=== PATIENT | male | born 1935 | race Caucasian/White ===

== ENCOUNTER 2019-09-23 06:26 | Inpatient (IN) ==
[2019-09-23] MEDS ORDERED: Naloxone 0.4 MG/ML INJ IVP PRN (08:06)
[2019-09-23] MEDS ORDERED: Ondansetron 4 MG/2 ML VIAL IVP PRN (08:06)
[2019-09-23] MEDS ORDERED: *HR* Dextrose 50 % in Water (Syg) 50 ML SYRINGE IVP PRN (08:34)
[2019-09-23] MEDS ORDERED: D5% in Water 1,000 ML IVC PRN (08:34)
[2019-09-23] MEDS ORDERED: Dextrose Gel 15 GM/37.5 ML TUBE PO PRN ×2 (08:34)
[2019-09-23 09:05] LABS: Basophils % 0.3 %; Hematocrit 36.1 % (37.5-50.1); Hemoglobin 12.4 g/dL (12.9-16.9); Immature Granulocytes % 0.5 % (0-4); Lymphocytes # 0.8 K/mcL (0.6-4.6); Lymphocytes % 6.1 %; Mean Corpuscular HGB Conc 34.3 g/dL (31.6-35.5); Mean Corpuscular Hemoglobin 32.8 pg (28.0-33.3); Mean Corpuscular Volume 95.5 fL (83.0-100.0); Mean Platelet Volume 12.1 fL (9.4-12.4); Monocytes # 0.9 K/mcL (0.0-1.3); Neutrophils # 11.5 K/mcL (1.6-8.9); Platelet Count 164 K/mcL (140-400); Red Blood Count 3.78 M/mcL (4.19-5.50); Red Cell Distribution Width 13.5 % (11.5-14.5); Segmented Neutrophils % 86.1 %; White Blood Count 13.4 K/mcL (4.3-11.1)
[2019-09-23] MEDS ORDERED: Acetaminophen 325 MG TABLET PO PRN (09:05)
[2019-09-23 09:15] LABS: BUN/Creatinine Ratio 24 (6-26); Blood Urea Nitrogen 22 mg/dL (8-23); Calcium 8.8 mg/dL (8.6-10.3); Carbon Dioxide 21 mEq/L (23-29); Chloride 105 mEq/L (98-107); Glucose 279 mg/dL (70-105); Osmolality,Calculated 301 (280-300); Potassium 4.8 mEq/L (3.5-5.1); Sodium 139 mEq/L (136-145); eGFR For African Americans > 60 (> 60); eGFR For Non-African Americans > 60 (> 60)
[2019-09-23] MEDS: *HR* HYDROcodone/Acet 5/325 mg TABLET PO PRN ×2 (12:11→18:15)
[2019-09-23] MEDS: Sulfamethoxazole/Trimeth 10 ML in D5% in Water 500 ML IVPB SCH ×2 (12:11→21:24)
[2019-09-23] MEDS: Insulin LISPRO 300 UNITS/3 ML VIAL SQ SCH ×3 (12:14→20:06)
[2019-09-23] MEDS: 0.9 % Sodium Chloride 1,000 ML IVC SCH (15:17)
[2019-09-23 17:24] LABS: Hematocrit 30.3 % (37.5-50.1); Hemoglobin 10.2 g/dL (12.9-16.9)
[2019-09-23] MEDS ORDERED: Insulin DETEMIR 100 UNIT/ML X5UNITS SQ SCH (21:00)
[2019-09-24] MEDS: *HR* HYDROcodone/Acet 5/325 mg TABLET PO PRN ×4 (00:01→20:05)
[2019-09-24 00:03] LABS: Hematocrit 32.1 % (37.5-50.1); Hemoglobin 11.1 g/dL (12.9-16.9)
[2019-09-24] MEDS ORDERED: Lidocaine Jelly 11 ml Syringe MM ONE (01:33)
[2019-09-24 04:40] LABS: Basophils % 0.4 %; Eosinophils % 0.3 %; Hematocrit 28.4 % (37.5-50.1); Hemoglobin 9.6 g/dL (12.9-16.9); Immature Granulocytes % 0.5 % (0-4); Lymphocytes # 1.4 K/mcL (0.6-4.6); Lymphocytes % 14.7 %; Mean Corpuscular HGB Conc 33.8 g/dL (31.6-35.5); Mean Corpuscular Hemoglobin 33.2 pg (28.0-33.3); Mean Corpuscular Volume 98.3 fL (83.0-100.0); Mean Platelet Volume 11.6 fL (9.4-12.4); Monocytes % 9.9 %; Neutrophils # 7.2 K/mcL (1.6-8.9); Platelet Count 113 K/mcL (140-400); Red Blood Count 2.89 M/mcL (4.19-5.50); Red Cell Distribution Width 13.5 % (11.5-14.5); Segmented Neutrophils % 74.2 %; White Blood Count 9.8 K/mcL (4.3-11.1)
[2019-09-24 05:01] LABS: BUN/Creatinine Ratio 24 (6-26); Blood Urea Nitrogen 19 mg/dL (8-23); Calcium 8.3 mg/dL (8.6-10.3); Carbon Dioxide 25 mEq/L (23-29); Chloride 104 mEq/L (98-107); Glucose 205 mg/dL (70-105); Magnesium 1.5 mg/dL (1.6-2.6); Osmolality,Calculated 292 (280-300); Sodium 137 mEq/L (136-145); eGFR For African Americans > 60 (> 60); eGFR For Non-African Americans > 60 (> 60)
[2019-09-24] MEDS: 0.9 % Sodium Chloride 1,000 ML IVC SCH (06:26)
[2019-09-24] MEDS: Metoprolol XL (24 HR) Succ 25 MG TAB.ER.24H PO SCH (09:53)
[2019-09-24] MEDS: Sulfamethoxazole/Trimeth 10 ML in D5% in Water 500 ML IVPB SCH ×2 (09:53→19:49)
[2019-09-24] MEDS: Ranolazine 500 MG TAB.ER.12H PO SCH ×2 (09:53→19:48)
[2019-09-24] MEDS: Insulin LISPRO 300 UNITS/3 ML VIAL SQ SCH ×4 (10:03→20:53)
[2019-09-24] MEDS: Hyoscyamine SL 0.125 MG TAB.SUBL SL SCH ×3 (13:54→19:48)
[2019-09-24 14:57] LABS: Hematocrit 28.4 % (37.5-50.1); Hemoglobin 9.8 g/dL (12.9-16.9)
[2019-09-24 17:37] LABS: Estimated Average Glucose 169 mg/dl
[2019-09-24] MEDS ORDERED: Insulin DETEMIR 100 UNIT/ML X5UNITS SQ SCH ×2 (21:00)
[2019-09-25] MEDS: *HR* HYDROcodone/Acet 5/325 mg TABLET PO PRN (03:17)
[2019-09-25 03:20] LABS: Hematocrit 26.9 % (37.5-50.1); Hemoglobin 9.3 g/dL (12.9-16.9); Mean Corpuscular HGB Conc 34.6 g/dL (31.6-35.5); Mean Corpuscular Hemoglobin 33.1 pg (28.0-33.3); Mean Corpuscular Volume 95.7 fL (83.0-100.0); Mean Platelet Volume 12.2 fL (9.4-12.4); Platelet Count 103 K/mcL (140-400); Red Blood Count 2.81 M/mcL (4.19-5.50); Red Cell Distribution Width 13.6 % (11.5-14.5); White Blood Count 7.3 K/mcL (4.3-11.1)
[2019-09-25 03:39] LABS: BUN/Creatinine Ratio 18 (6-26); Blood Urea Nitrogen 15 mg/dL (8-23); Calcium 7.9 mg/dL (8.6-10.3); Carbon Dioxide 26 mEq/L (23-29); Chloride 104 mEq/L (98-107); Glucose 223 mg/dL (70-105); Magnesium 1.5 mg/dL (1.6-2.6); Osmolality,Calculated 292 (280-300); Potassium 4.1 mEq/L (3.5-5.1); Sodium 137 mEq/L (136-145); eGFR For African Americans > 60 (> 60); eGFR For Non-African Americans > 60 (> 60)
[2019-09-25] MEDS: Metoprolol XL (24 HR) Succ 25 MG TAB.ER.24H PO SCH (08:25)
[2019-09-25] MEDS: Ranolazine 500 MG TAB.ER.12H PO SCH (08:25)
[2019-09-25] MEDS: Hyoscyamine SL 0.125 MG TAB.SUBL SL SCH (08:25)
[2019-09-25] MEDS: Insulin LISPRO 300 UNITS/3 ML VIAL SQ SCH ×2 (08:26→14:20)
[2019-09-25] MEDS: Sulfamethoxazole/Trimeth 10 ML in D5% in Water 500 ML IVPB SCH (14:21)
[2019-09-25 14:55] VITALS: BP 131/73
[2019-09-25] MEDS ORDERED: Sulfamethoxazole/Trimeth DS 1 EACH TABLET PO SCH (21:00)
== END 2019-09-25 15:31 | disposition home or self-care (01) | DRG 872 ==
LOC: 3BNU
PROVIDERS: ADMIT Internal Medicine; ATTEND Internal Medicine

== ENCOUNTER 2019-09-26 12:12 | Inpatient (IN) ==
[2019-09-26] MEDS ORDERED: *HR* FentaNYL (PF) 100 MCG/2 ML VIAL IVP ONE (13:10)
[2019-09-26 13:11] LABS: Basophils % 0.3 %; Eosinophils # 0.1 K/mcL (0.0-0.6); Eosinophils % 0.9 %; Hematocrit 28.5 % (37.5-50.1); Hemoglobin 9.7 g/dL (12.9-16.9); Immature Granulocytes % 0.5 % (0-4); Lymphocytes # 1.2 K/mcL (0.6-4.6); Lymphocytes % 15.7 %; Mean Corpuscular Hemoglobin 33.3 pg (28.0-33.3); Mean Corpuscular Volume 97.9 fL (83.0-100.0); Mean Platelet Volume 11.5 fL (9.4-12.4); Monocytes # 0.8 K/mcL (0.0-1.3); Monocytes % 10.7 %; Neutrophils # 5.4 K/mcL (1.6-8.9); Platelet Count 133 K/mcL (140-400); Red Blood Count 2.91 M/mcL (4.19-5.50); Red Cell Distribution Width 13.6 % (11.5-14.5); Segmented Neutrophils % 71.9 %; White Blood Count 7.5 K/mcL (4.3-11.1)
[2019-09-26 13:15] LABS: BUN/Creatinine Ratio 18 (6-26); Blood Urea Nitrogen 13 mg/dL (8-23); Calcium 8.9 mg/dL (8.6-10.3); Carbon Dioxide 25 mEq/L (23-29); Chloride 105 mEq/L (98-107); Glucose 185 mg/dL (70-105); Osmolality,Calculated 293 (280-300); Sodium 139 mEq/L (136-145); eGFR For African Americans > 60 (> 60); eGFR For Non-African Americans > 60 (> 60)
[2019-09-26] MEDS ORDERED: 0.9 % Sodium Chloride 1,000 ML IVC ONE (14:00)
[2019-09-26 14:29] LABS: Bilirubin,Urine Negative (Negative); Blood,Urine Large (Negative); Clarity,Urine Cloudy (Clear); Color,Urine Yellow (Yellow); Glucose,Urine (UA) Normal (Normal); Ketones,Urine Trace mg/dL (Negative); Leukocyte Esterase,Urine Moderate (Negative); Nitrite,Urine Negative (Negative); Protein,Urine 100 mg/dL (Neg-Trace); Specific Gravity,Urine 1.019 (1.010-1.025); Urobilinogen,Urine Normal (Normal)
[2019-09-26 14:34] LABS: Hyaline Casts,Urine None Seen per lpf (None-Few); Squamous Epithelial Cell,Urine Many per lpf (None-Few)
[2019-09-26 14:53] LABS: Bacteria,Urine Few per hpf (None-Few); RBC,Urine 50-100 per hpf (0-3)
[2019-09-26] MEDS ORDERED: 0.9 % Sodium Chloride 1,000 ML ONE (15:09)
[2019-09-26] MEDS ORDERED: Acetaminophen 325 MG TABLET PO PRN (15:16)
[2019-09-26] MEDS ORDERED: *HR* HYDROcodone/Acet 5/325 mg TABLET PO PRN (15:16)
[2019-09-26] MEDS ORDERED: Naloxone 0.4 MG/ML INJ IVP PRN (15:16)
[2019-09-26] MEDS ORDERED: *HR* OxyCODONE Immed Rel 5 MG TABLET PO PRN (15:16)
[2019-09-26] MEDS ORDERED: Dextrose Gel 15 GM/37.5 ML TUBE PO PRN ×2 (15:59)
[2019-09-26] MEDS ORDERED: *HR* Dextrose 50 % in Water (Syg) 50 ML SYRINGE IVP PRN (15:59)
[2019-09-26] MEDS ORDERED: D5% in Water 1,000 ML IVC PRN (15:59)
[2019-09-26] MEDS: Ringers Solution, Lactated 1,000 ML IVC SCH (18:09)
[2019-09-26] MEDS: Metoprolol XL (24 HR) Succ 25 MG TAB.ER.24H PO SCH (18:09)
[2019-09-26] MEDS: Insulin LISPRO 300 UNITS/3 ML VIAL SQ SCH (18:10)
[2019-09-26] MEDS ORDERED: Insulin LISPRO 300 UNITS/3 ML VIAL SQ SCH (21:00)
[2019-09-26] MEDS: Hyoscyamine SL 0.125 MG TAB.SUBL SL SCH (21:58)
[2019-09-26] MEDS: Ranolazine 500 MG TAB.ER.12H PO SCH (21:58)
[2019-09-26] MEDS: Sulfamethoxazole/Trimeth DS 1 EACH TABLET PO SCH (21:58)
[2019-09-27 04:56] LABS: Basophils % 0.4 %; Eosinophils # 0.1 K/mcL (0.0-0.6); Eosinophils % 2.7 %; Hematocrit 25.3 % (37.5-50.1); Hemoglobin 8.3 g/dL (12.9-16.9); Immature Granulocytes % 0.4 % (0-4); Lymphocytes # 1.3 K/mcL (0.6-4.6); Mean Corpuscular HGB Conc 32.8 g/dL (31.6-35.5); Mean Corpuscular Hemoglobin 32.7 pg (28.0-33.3); Mean Corpuscular Volume 99.6 fL (83.0-100.0); Mean Platelet Volume 11.8 fL (9.4-12.4); Monocytes # 0.7 K/mcL (0.0-1.3); Monocytes % 12.7 %; Platelet Count 116 K/mcL (140-400); Red Blood Count 2.54 M/mcL (4.19-5.50); Red Cell Distribution Width 14.2 % (11.5-14.5); Segmented Neutrophils % 58.8 %; White Blood Count 5.1 K/mcL (4.3-11.1)
[2019-09-27 05:41] LABS: Blood Urea Nitrogen 12 mg/dL (8-23); Calcium 8.1 mg/dL (8.6-10.3); Chloride 108 mEq/L (98-107); Glucose 141 mg/dL (70-105); Osmolality,Calculated 294 (280-300); Potassium 4.2 mEq/L (3.5-5.1); Sodium 141 mEq/L (136-145)
[2019-09-27 06:31] LABS: INR 1.1; Prothrombin Time 12.8 Seconds (9.4-12.1)
[2019-09-27 06:41] LABS: BUN/Creatinine Ratio 17 (6-26); Carbon Dioxide 27 mEq/L (23-29); eGFR For African Americans > 60 (> 60); eGFR For Non-African Americans > 60 (> 60)
[2019-09-27] MEDS: Insulin LISPRO 300 UNITS/3 ML VIAL SQ SCH ×3 (07:52→16:12)
[2019-09-27] MEDS ORDERED: Clindamycin 900 MG/50 ML 900 MG/50 ML IV.SOLN IVPB ONE (08:17)
[2019-09-27] MEDS ORDERED: Naloxone 0.4 MG/ML INJ IVP PRN (09:46)
[2019-09-27] MEDS ORDERED: D5% in Water 1,000 ML IVC PRN (09:46)
[2019-09-27] MEDS ORDERED: Ringers Solution, Lactated 1,000 ML IVC SCH (09:46)
[2019-09-27] MEDS ORDERED: *HR* OxyCODONE Immed Rel 5 MG TABLET PO PRN (09:46)
[2019-09-27] MEDS ORDERED: Dextrose Gel 15 GM/37.5 ML TUBE PO PRN ×2 (09:46)
[2019-09-27] MEDS ORDERED: Acetaminophen 325 MG TABLET PO PRN (09:46)
[2019-09-27] MEDS ORDERED: *HR* Dextrose 50 % in Water (Syg) 50 ML SYRINGE IVP PRN (09:46)
[2019-09-27] MEDS ORDERED: *HR* HYDROcodone/Acet 5/325 mg TABLET PO PRN (09:46)
[2019-09-27 12:18] LABS: Hematocrit 29.3 % (37.5-50.1)
[2019-09-27 12:19] LABS: Hemoglobin 9.9 g/dL (12.9-16.9)
[2019-09-27] MEDS: Hyoscyamine SL 0.125 MG TAB.SUBL SL SCH ×3 (14:42→20:41)
[2019-09-27] MEDS: Metoprolol XL (24 HR) Succ 25 MG TAB.ER.24H PO SCH (20:29)
[2019-09-27] MEDS: Ranolazine 500 MG TAB.ER.12H PO SCH ×2 (20:29→20:41)
[2019-09-27] MEDS: Sulfamethoxazole/Trimeth DS 1 EACH TABLET PO SCH ×2 (20:30→20:42)
[2019-09-27] MEDS: Ringers Solution, Lactated 1,000 ML IVC SCH (20:30)
[2019-09-27] MEDS ORDERED: IPRATROPIUM BROMIDE NS SCH (21:00)
[2019-09-27] MEDS ORDERED: Insulin LISPRO 300 UNITS/3 ML VIAL SQ SCH (21:00)
[2019-09-28 06:42] LABS: Basophils % 0.2 %; Eosinophils % 0.2 %; Hematocrit 25.3 % (37.5-50.1); Hemoglobin 8.6 g/dL (12.9-16.9); Immature Granulocytes % 0.8 % (0-4); Lymphocytes # 0.9 K/mcL (0.6-4.6); Lymphocytes % 13.8 %; Mean Corpuscular Hemoglobin 33.1 pg (28.0-33.3); Mean Corpuscular Volume 97.3 fL (83.0-100.0); Mean Platelet Volume 11.5 fL (9.4-12.4); Monocytes # 0.7 K/mcL (0.0-1.3); Monocytes % 10.3 %; Neutrophils # 4.8 K/mcL (1.6-8.9); Platelet Count 123 K/mcL (140-400); Red Cell Distribution Width 14.1 % (11.5-14.5); Segmented Neutrophils % 74.7 %; White Blood Count 6.4 K/mcL (4.3-11.1)
[2019-09-28 08:35] LABS: Hematocrit 26.2 % (37.5-50.1)
[2019-09-28] MEDS ORDERED: Metoprolol XL (24 HR) Succ 25 MG TAB.ER.24H PO SCH (09:00)
[2019-09-28] MEDS: Insulin LISPRO 300 UNITS/3 ML VIAL SQ SCH ×2 (09:14→11:42)
[2019-09-28] MEDS: Sulfamethoxazole/Trimeth DS 1 EACH TABLET PO SCH (09:15)
[2019-09-28] MEDS: Ranolazine 500 MG TAB.ER.12H PO SCH (09:15)
[2019-09-28] MEDS: Hyoscyamine SL 0.125 MG TAB.SUBL SL SCH (09:15)
[2019-09-28 14:42] VITALS: BP 95/56
== END 2019-09-28 15:24 | disposition home or self-care (01) | DRG 670 ==
LOC: 3ANU 12:12 → EMEROOARM 12:12 → 3ANU 17:09 → SUATTDRO 09-27 15:43
PROVIDERS: ADMIT Internal Medicine; ATTEND Internal Medicine